=== PATIENT | female | born 1955 | race Caucasian/White ===

== ENCOUNTER 2021-06-12 12:54 | Emergency (ER) | payer MEDICAID ==
[~2021-06-12] VITALS: Ht 170.2 cm; Wt 70.0 kg
[~2021-06-12 12:54] MED LIST: OLAN10TA74 PO
[2021-06-12 13:27] VITALS: BP 122/74
== END 2021-06-12 14:33 | disposition home or self-care (01) ==
LOC: EMS 12:54
DX: S39.011A Strain of muscle, fascia and tendon of abdomen, initial encounter (principal); X50.1XXA Overexertion from prolonged static or awkward postures, initial encounter; Y93.89 Activity, other specified; Y92.89 Other specified places as the place of occurrence of the external cause; Y99.8 Other external cause status
CPT/HCPCS: 99283

== ENCOUNTER 2021-10-06 14:56 | Emergency (ER) | payer MEDICAID ==
[~2021-10-06] VITALS: Ht 165.1 cm; Wt 59.1 kg
[2021-10-06] MEDS ORDERED: HydrOXYzine HCL 50 MG TABLET PO ONE (17:15)
[2021-10-06] MEDS ORDERED: PERMETHRIN 1% 60 ML LOTION TP ONE (17:15)
[2021-10-06 19:02] VITALS: BP 112/83
[2021-10-06] MEDS ORDERED: PERM60CR19 TP (19:40)
[2021-10-06] MEDS ORDERED: HYD25 PO (19:40)
== END 2021-10-06 22:30 | disposition home or self-care (01) ==
LOC: EMS 15:05
DX: B85.1 Pediculosis due to Pediculus humanus corporis (principal); B85.0 Pediculosis due to Pediculus humanus capitis
CPT/HCPCS: 99283

== ENCOUNTER 2021-10-19 08:33 | Emergency (ER) | payer MEDICAID ==
[~2021-10-19] VITALS: Ht 162.6 cm; Wt 59.1 kg
[~2021-10-19 08:33] MED LIST changes: +HYDR-4527 PO; +PERM60CR19 TP
[2021-10-19] MEDS ORDERED: PERMETHRIN 5% 60 GM CREAM TP ONE (09:30)
[2021-10-19 10:39] VITALS: BP 129/71
== END 2021-10-19 10:40 | disposition home or self-care (01) ==
LOC: EMS 08:33
DX: B85.0 Pediculosis due to Pediculus humanus capitis (principal); B85.1 Pediculosis due to Pediculus humanus corporis
CPT/HCPCS: 99282; Z7502; Z7610